=== PATIENT | male | born 1970 | race Caucasian/White ===

== ENCOUNTER 2024-04-01 08:50 | Inpatient (IN) | payer OTHER ==
[2024-03-25 10:58] LABS: BASOPHILS # (AUTO) 0.1 X10'3 (0-0.2); BASOPHILS % (AUTO) 1.1 % (0-1); EOSINOPHILS # (AUTO) 0.1 X10'3 (0-0.9); EOSINOPHILS % (AUTO) 0.8 % (0-6); LYMPHOCYTES # (AUTO) 2.1 X10'3 (1.1-4.8); LYMPHOCYTES % (AUTO) 27.5 % (21-51); MEAN CORPUSCULAR HEMOGLOBIN 31.9 PG (27.0-31.0); MEAN CORPUSCULAR HGB CONC 34.9 g/dL (33.0-36.5); MEAN CORPUSCULAR VOLUME 91.2 FL (78-98); MEAN PLATELET VOLUME 7.4 FL (7.4-10.4); MONOCYTES # (AUTO) 0.5 X10'3 (0-0.9); MONOCYTES % (AUTO) 6.7 % (2-12); NEUTROPHILS # (AUTO) 4.8 X10'3 (1.8-7.7); NEUTROPHILS % (AUTO) 63.9 % (42-75); PRE OP HEMATOCRIT 46.6 % (42.0-52.0); PRE OP HEMOGLOBIN 16.3 g/dL (14.0-17.9); PRE OP PLATELET COUNT 283 X10'3 (140-440); PRE OP WHITE BLOOD COUNT 7.6 10'3 (4.8-10.8); RED BLOOD COUNT 5.11 X10'6 (4.70-6.10); RED CELL DISTRIBUTION WIDTH 12.5 % (11.5-14.5)
[2024-03-25 11:20] LABS: ALBUMIN 4.4 G/DL (3.4-5.0); ALBUMIN/GLOBULIN RATIO 1.1 (1.1-1.5); ALKALINE PHOSPHATASE 83 IU/L (46-116); BLOOD UREA NITROGEN 13 MG/DL (7-18); BUN/CREATININE RATIO 11.9 (10.0-20.0); CHLORIDE 102 MMOL/L (99-107); CREATININE 1.09 MG/DL (0.60-1.10); PRE OP ALT 36 U/L (30-65); PRE OP ANION GAP 8 (8-16); PRE OP AST 18 U/L (10-37); PRE OP BILIRUB, TOTAL 0.6 MG/DL (0.0-1.0); PRE OP GLUCOSE 99 MG/DL (70-104); PRE OP POTASSIUM 4.5 MMOL/L (3.4-5.1); PRE OP SODIUM 140 MMOL/L (135-145); TOTAL CARBON DIOXIDE 29.8 MMOL/L (24-32); TOTAL PROTEIN 8.3 G/DL (6.4-8.2); eGFR 70 ML/MIN
[~2024-04-01] VITALS: Ht 190.5 cm; Wt 106.6 kg
[2024-04-01] VITALS (30 sets, daily range): BP systolic 122–156; BP diastolic 71–97; PULSE 48–95; RESP 10–19; TEMP 97.3–98.1; O2SAT 93–100
[2024-04-01] MEDS: ringers solution, lacted 1,000 ML IV SCH (05:30)
[2024-04-01] MEDS: clindamycin-Cleocin 900mg/D5W 50 ML IV ONE (08:03)
[2024-04-01] MEDS: tranexamic acid 1gm/0.7% sal. 100 ML IV ONE (08:09)
[2024-04-01] MEDS: ROPIVAcaine inj 200 MG, epiNEPHrine inj 0.6 MG, morphine 10mg/ml inj. 5 MG in normal sa... IU ONE (08:20)
[~2024-04-01 08:50] MED LIST: ACET-1008 PO; DULO30CA52 PO; IBUP-1986 PO
[2024-04-01] MEDS: VANCOMYCIN/H2O 1.5g/300mL PB 300 ML IV ONE (09:18)
[2024-04-01] MEDS: famotidine 20mg tablet PO ONE (09:20)
[2024-04-01] MEDS ORDERED: BUPIVACAINE/MELOXICAM 14 ML VIAL IL ONE (11:50)
[2024-04-01] MEDS ORDERED: vancomycin 1,000mg inj ONE (11:51)
[2024-04-01] MEDS ORDERED: BUPIVAcaine 0.25% w/Epi /PF 30ml vial ONE (12:33)
[2024-04-01] MEDS ORDERED: MIDAZolam 1mg/ml 10ml vial ONE (12:40)
[2024-04-01] MEDS ORDERED: fentaNYL/PF 50MCG/1 ML 2ML syringe ONE (12:41)
[2024-04-01] MEDS ORDERED: morphine 2 MG/ML inj. syringe IV PRN (13:20)
[2024-04-01] MEDS ORDERED: fentaNYL/PF 50MCG/1 ML 2ML syringe IV PRN ×2 (13:20)
[2024-04-01] MEDS ORDERED: enalaprilat 1.25mg/ml 2ml vial IV PRN (13:20)
[2024-04-01] MEDS ORDERED: ringers solution, lacted 1,000 ML IV SCH (13:20)
[2024-04-01] MEDS ORDERED: hydrALAZINE 20mg/ml inj. IV PRN (13:20)
[2024-04-01] MEDS ORDERED: ROPIVAcaine 0.5% (5mg/ml) 30ml vial ONE (14:39)
[2024-04-01] MEDS: TRANEXAMIC ACID IV ONE ×2 (15:05→18:37)
[2024-04-01] MEDS ORDERED: acetaminophen 325mg tablet PO PRN (15:05)
[2024-04-01] MEDS ORDERED: diphenhydrAMINE 25mg capsule PO PRN ×2 (15:05)
[2024-04-01] MEDS ORDERED: bisacodyl 10mg suppository rectal RC PRN (15:05)
[2024-04-01] MEDS ORDERED: HYDROmorphone inj. 0.5 MG/0.5 ML DISP.SYRIN IV PRN (15:05)
[2024-04-01] MEDS: NORMAL SALINE IV ONE ×2 (15:05→18:37)
[2024-04-01] MEDS ORDERED: naloxone 0.4 mg/ml inj IV PRN (15:05)
[2024-04-01] MEDS ORDERED: ondansetron/PF 4mg/2ml inj IV PRN (15:05)
[2024-04-01] MEDS ORDERED: magnesium hydroxide 30ml (MOM) UD suspension PO PRN (15:05)
[2024-04-01] MEDS: morphine 4 MG/ML inj SYRINge IV PRN (18:00)
[2024-04-01] MEDS: acetaminophen 1,000mg/100ml IV 100 ML IV ONE (18:13)
[2024-04-01] MEDS: ondansetron/PF 4mg/2ml inj IV PRN (19:21)
[2024-04-01] MEDS: clindamycin 600mg/D5W 50ml 50 ML IV SCH (20:46)
[2024-04-01] MEDS: gabapentin 300mg capsule PO SCH (20:46)
[2024-04-01] MEDS: acetaminophen 325mg tablet PO SCH (20:47)
[2024-04-01] MEDS: oxyCODONE IR 5mg (immed. release) tablet PO PRN (20:48)
[2024-04-01] MEDS: vancomycin/NS 1 GM ADD-VANTAGE 250 ML IV SCH (21:30)
[2024-04-01] MEDS: potassium Cl 20mEq in NS 1,000 ML IV SCH (21:31)
[2024-04-01] MEDS: HYDROmorphone 1 mg/ml syringe IV PRN (23:34)
[2024-04-02] VITALS (7 sets, daily range): BP systolic 121–170; BP diastolic 35–93; PULSE 55–84; RESP 16–18; TEMP 97.2–97.9; O2SAT 92–96
[2024-04-02] MEDS: duloxetine 30mg CAPSULE.DR PO SCH (08:29)
[2024-04-02] MEDS: enoxaparin 40mg/0.4ml syringe SQ SCH (08:29)
[2024-04-02] MEDS: oxyCODONE IR 5mg (immed. release) tablet PO PRN (13:13)
[2024-04-03 02:03] VITALS: BP 156/87; RESP 20; O2SAT 96
[2024-04-03 06:00] VITALS: BP 144/76; PULSE 77; RESP 17; TEMP 97.9; O2SAT 95
[2024-04-03 10:00] VITALS: BP 157/88; PULSE 73; RESP 16; TEMP 97.6; O2SAT 95
[2024-04-03 10:47] VITALS: RESP 16
== END 2024-04-03 13:50 | disposition home or self-care (01) | DRG 470 ==
LOC: PAS IN 08:50 → ORTHO 4S 19:55
PROVIDERS: ADMIT Orthopaedic Surgery; ATTEND Orthopaedic Surgery
PROC: 0SRD0JA Replacement of Left Knee Joint with Synthetic Substitute, Uncemented, Open Approach (ICD-10-PCS; principal; 2024-04-01 12:33)
DX: M17.12 Unilateral primary osteoarthritis, left knee (principal)
CPT/HCPCS: 36415; 73560; 80053; 82948; 85025; 87081; 93005; 97110; 97116; 97162; 97530; A4215; A4314; A4615; A4618; A6253; A6258; A6446; A6449; A6454; A7000; C1758; C1776; C9088; C9250; G0378; J0131; J0171; J1171; J1650; J2250; J2270; J2274; J2405; J2795; J3010; J3370; J3372; J3480; J3490; J7120; S0020

== ENCOUNTER 2024-06-22 17:54 | Emergency (ER) | payer OTHER ==
[~2024-06-22] VITALS: Ht 190.5 cm; Wt 106.8 kg
[~2024-06-22 17:54] MED LIST changes: -IBUP-1986 PO
[2024-06-22 19:08] VITALS: TEMP 99
[2024-06-22 19:19] LABS: BASOPHILS % (AUTO) 0.6 % (0-1); EOSINOPHILS # (AUTO) 0.2 X10'3 (0-0.9); HEMOGLOBIN 13.8 g/dl (14.0-17.9); LYMPHOCYTES # (AUTO) 2.1 X10'3 (1.1-4.8); LYMPHOCYTES % (AUTO) 35.8 % (21-51); MEAN CORPUSCULAR HEMOGLOBIN 30.1 PG (27.0-31.0); MEAN CORPUSCULAR HGB CONC 33.6 g/dL (33.0-36.5); MEAN CORPUSCULAR VOLUME 89.4 FL (78-98); MEAN PLATELET VOLUME 7.6 FL (7.4-10.4); MONOCYTES # (AUTO) 0.5 X10'3 (0-0.9); MONOCYTES % (AUTO) 9.2 % (2-12); NEUTROPHILS % (AUTO) 51.4 % (42-75); PLATELET COUNT 257 X10'3 (140-440); RED BLOOD COUNT 4.59 X10'6 (4.70-6.10); RED CELL DISTRIBUTION WIDTH 13.4 % (11.5-14.5); WHITE BLOOD COUNT 5.8 X10'3 (4.5-11.0)
[2024-06-22 19:33] LABS: ALANINE AMINOTRANSFERASE 30 U/L (12-78); ALBUMIN 3.8 G/DL (3.4-5.0); ALBUMIN/GLOBULIN RATIO 1.2 (1.1-1.5); ALKALINE PHOSPHATASE 93 IU/L (46-116); ANION GAP 10 (8-16); ASPARTATE AMINO TRANSFERASE 18 U/L (10-37); BILIRUBIN,TOTAL 0.3 MG/DL (0.1-1.0); BLOOD UREA NITROGEN 10 MG/DL (7-18); BUN/CREATININE RATIO 12.5 (10.0-20.0); CALCIUM 8.7 MG/DL (8.5-10.1); CHLORIDE 105 MMOL/L (99-107); GLUCOSE 95 MG/DL (70-104); POTASSIUM 3.7 MMOL/L (3.5-5.1); SODIUM 140 MMOL/L (135-145); TOTAL CARBON DIOXIDE 24.8 MMOL/L (24-32); TOTAL PROTEIN 7.1 G/DL (6.4-8.2); eCRCL 126 ML/MIN; eGFR > 90 ML/MIN
[2024-06-22 20:06] VITALS: BP 150/94; PULSE 88; RESP 16; O2SAT 98
== END 2024-06-22 20:14 | disposition home or self-care (01) ==
LOC: ER 17:55
DX: M25.462 Effusion, left knee (principal)
CPT/HCPCS: 36415; 80053; 85025; 93971; 99284